=== PATIENT | female | born 2000 | race Caucasian/White ===

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

== ENCOUNTER 2022-10-18 09:05 | Emergency (ER) | payer OTHER ==
[~2022-10-18] VITALS: Ht 152.4 cm; Wt 58.2 kg
[2022-10-18 09:16] VITALS: BP 128/84
--- NOTE | 2022-10-18 09:29 | NUR ---
patient ambulated to bed 12 without assitance with spouse sitting at bedside Addendum: 10/18/22 at 1126 by [id number] Patient discharged with v/s stable. Written and verbal after care instructions given and explained. Patient alert, oriented and verbalized understanding of instructions. Ambulatory with to home. All questions addressed prior to discharge. ID band removed. Patient advised to follow up with PMD. Rx of ZOFRAN, TYLENOL,KEFLEX, MOTRIN given. Patient educated on indication of medication including possible reaction and side effects. Opportunity to ask questions provided and answered.
[2022-10-18] MEDS ORDERED: KETOROLAC 30 MG/ML VIAL IVP ONE (09:35)
[2022-10-18] MEDS ORDERED: ONDANSETRON 4 MG/2 ML VIAL IVP ONE (09:35)
[2022-10-18] MEDS ORDERED: NACL 0.9% 1,000 ML IV ONE (09:35)
--- NOTE | 2022-10-18 09:52 | NUR ---
C/O LOWER BACK PAINASSO WITH NAUSEA, URGENCY , FREQUENCY TO VOID, NO FEVER , NO HEMATURIA, MD AT BS TO EXAMINE, PAIN MEDS GIVEN S ORDERED
[2022-10-18 10:10] LABS: APPEARANCE,URINE CLEAR (CLEAR); BILIRUBIN,URINE NEGATIVE (NEGATIVE); BLOOD, URINE 2+ (NEGATIVE); COLOR,URINE YELLOW (YELLOW); LEUKOCYTE ESTERASE ,URINE 2+ (NEGATIVE); NITRITE, URINE POSITIVE (NEGATIVE); UGLUCOSE NEGATIVE (NEGATIVE)
[2022-10-18] MEDS ORDERED: MORPHINE SULFATE 4 MG/ML SYR IVP ONE (10:25)
[2022-10-18 10:29] LABS: RBC,URINE 20-50 /HPF (0-5)
[2022-10-18 10:30] LABS: TRICHOMONAS,URINE None Seen /HPF (None Seen); YEAST,URINE None Seen /HPF (None Seen)
[2022-10-18] MEDS ORDERED: cefTRIAXone 1,000 MG VIAL ONE (10:30)
--- NOTE | 2022-10-18 10:36 | NUR ---
PT STILL IN PAIN, PAIN MEDS GIVEN ORDERED
[2022-10-18] MEDS ORDERED: CEPH-588 PO (10:58)
--- NOTE | 2022-10-18 10:58 | NUR ---
KATIE BRYANT MD AT BS TO DICUSS TEST RESULTS AND DC INSTRUCTION
[2022-10-18] MEDS ORDERED: ONDA-188 SL (10:59)
[2022-10-18] MEDS ORDERED: ACET-10509 PO (10:59)
[2022-10-18] MEDS ORDERED: IBUP-2213 PO (10:59)
[2022-10-18 11:17] VITALS: BP 100/48
--- NOTE | 2022-10-18 11:25 | NUR ---
Patient discharged with v/s stable. Written and verbal after care instructions given and explained. Patient alert, oriented and verbalized understanding of instructions. Ambulatory with steady gait. All questions addressed prior to discharge. ID band removed. Patient advised to follow up with PMD. Rx of IBUPROFEN, ZOFRAN, KEFELX, TYLENOL (SENT) given. Patient educated on indication of medication including possible reaction and side effects. Opportunity to ask questions provided and answered.
== END 2022-10-18 11:25 | disposition home or self-care (01) ==
LOC: MED 09:05
DX: N12 Tubulo-interstitial nephritis, not specified as acute or chronic (principal); N39.0 Urinary tract infection, site not specified; Z79.899 Other long term (current) drug therapy
CPT/HCPCS: 81001; 81025; 87086; 96361; 96365; 96375; 99284; J0696; J1885; J2270; J2405; J7030

== ENCOUNTER 2022-10-20 03:42 | Emergency (ER) | payer OTHER ==
[~2022-10-20] VITALS: Ht 152.4 cm; Wt 58.1 kg
[~2022-10-20 03:42] MED LIST: ACET-10509 PO; CEPH-588 PO; IBUP-2213 PO; ONDA-188 SL
[2022-10-20 04:23] VITALS: BP 101/53
--- NOTE | 2022-10-20 04:33 | NUR ---
Dr. Mason examining patient.
[2022-10-20] MEDS ORDERED: NACL 0.9% 1,000 ML IV ONE (04:40)
[2022-10-20] MEDS ORDERED: KETOROLAC 15 MG/ML VIAL IVP ONE (04:45)
[2022-10-20 05:03] LABS: APPEARANCE,URINE CLEAR (CLEAR); BILIRUBIN,URINE NEGATIVE (NEGATIVE); BLOOD, URINE 3+ (NEGATIVE); COLOR,URINE YELLOW (YELLOW); LEUKOCYTE ESTERASE ,URINE 1+ (NEGATIVE); NITRITE, URINE NEGATIVE (NEGATIVE); PH,URINE 6.5 (5.0-9.0); UGLUCOSE NEGATIVE (NEGATIVE)
[2022-10-20 05:21] LABS: RBC,URINE 11-20 (MOD) /HPF (0-5)
[2022-10-20] MEDS ORDERED: OXYC5TAB4 PO ×2 (05:34→11:37)
[2022-10-20 05:43] VITALS: BP 101/53
--- NOTE | 2022-10-20 05:43 | NUR ---
Patient discharged with v/s stable. Written and verbal after care instructions given and explained. New rx roxicodone. Patient verbalized understanding. Ambulatory with steady gait. Accompanied by significant other. All questions addressed prior to discharge. Advised to follow up with PMD.
== END 2022-10-20 05:43 | disposition home or self-care (01) ==
LOC: MED 03:42
DX: N12 Tubulo-interstitial nephritis, not specified as acute or chronic (principal); R51.9 Headache, unspecified; Z79.899 Other long term (current) drug therapy
CPT/HCPCS: 81001; 81025; 87086; 96361; 96374; 99283; J1885; J7030